=== PATIENT | male | born 1955 | race Caucasian/White ===

== ENCOUNTER → 2017-08-21 | Outpatient (CLI) | payer BC | LOC: OD 10:24 | PROVIDERS: ATTEND Physician Assistant | DX: E11.40 Type 2 diabetes mellitus with diabetic neuropathy, unspecified (principal) | CPT/HCPCS: 36415; 83036 ==

== ENCOUNTER → 2017-08-26 | Outpatient (CLI) | payer BC ==
[2017-08-26 11:58] LABS: ABSOLUTE LYMPHOCYTES (AUTO) 1.2 10^3/uL (0.5-4.7); ABSOLUTE MONOCYTES (AUTO) 0.5 10^3/uL (0.1-1.4); ABSOLUTE NEUT (AUTO) 5.5 10^3/uL (1.7-8.2); BASOPHILS % (AUTO) 0.5 % (0-2); EOSINOPHILS % (AUTO) 0.4 % (0-6); HEMATOCRIT 37.1 % (37.9-51.0); HEMOGLOBIN 12.5 g/dL (13.5-17.0); LYMPHOCYTES % (AUTO) 16.6 % (13-45); MEAN CORPUSCULAR HEMOGLOBIN 27.3 pg (27.0-33.4); MEAN CORPUSCULAR HGB CONC 33.8 g/dL (32.0-36.0); MEAN CORPUSCULAR VOLUME 81 fl (80-97); MONOCYTES % (AUTO) 6.9 % (3-13); PLATELET COUNT 458 10^3/uL (150-450); RED BLOOD COUNT 4.58 10^6/uL (4.35-5.55); RED CELL DISTRIBUTION WIDTH 13.6 % (11.5-14.0); SEGMENTED NEUTROPHILS % (AUTO) 75.6 % (42-78); TOTAL CELLS COUNTED % (AUTO) 100 %; WHITE BLOOD COUNT 7.3 10^3/uL (4.0-10.5)
[2017-08-26 12:40] LABS: ALANINE AMINOTRANSFERASE 20 U/L (21-72); ALBUMIN 3.7 g/dL (3.5-5.0); ALKALINE PHOSPHATASE 81 U/L (38-126); ANION GAP 13 (5-19); ASPARTATE AMINO TRANSFERASE 12 U/L (17-59); BILIRUBIN,DIRECT 0.1 mg/dL (0.0-0.4); BILIRUBIN,TOTAL 0.1 mg/dL (0.2-1.3); BLOOD UREA NITROGEN 15 mg/dL (7-20); CALCIUM 9.2 mg/dL (8.4-10.2); CARBON DIOXIDE 29 mmol/L (22-30); CHLORIDE 102 mmol/L (98-107); GLUCOSE 126 mg/dL (75-110); POTASSIUM 4.9 mmol/L (3.6-5.0); SODIUM 144.2 mmol/L (137-145)
== END ==
LOC: WC 10:37
PROVIDERS: ATTEND Nurse Practitioner
DX: L97.212 Non-pressure chronic ulcer of right calf with fat layer exposed (principal)
CPT/HCPCS: 36415; 80053; 83036; 85025

== ENCOUNTER → 2017-09-01 | Outpatient (CLI) | payer BC ==
--- NOTE | 2017-09-01 11:08 | XCELERA REPORT ---
[address] [address] Lower Extremity Arterial Evaluation Name: MAYCO PACKER Age: 62 yrs Gender: Male : 1955 Patient Status: Outpatient Patient Location: Study Date: 09/01/2017 09:05 AM Procedure: A color flow and duplex scan of the lower extremity arteries was performed bilaterally with velocity and waveform anaylsis. Ankle brachial indicies performed. 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 Biphasic Deep Femoral artery. 0-19% stenosis at the Deep Femoral artery. Ankle Brachial index is 1.26. Non compressible Dorsalis Pedis.. Left Side Arterial Evaluation Normal velocity and triphasic waveforms noted from the Common Femoral artery to the infrageniculate vessels. Biphasic Deep Femoral and Dorsalis Pedis arteries. 0-19% stenosis at the Deep Femoral and Dorsalis Pedis arteries. Ankle Brachial index was not obtainable, Non compressible. Interpretation Summary Mild hemodynamically significant lesions in the bilateral lower extremities, on duplex imaging, at rest. : AIRAM KNOTT > Elver Lawrence
--- NOTE | 2017-09-03 13:41 | XCELERA REPORT ---
[address] [address] Lower Extremity Venous Evaluation Name: MAYCO PACKER Age: 62 yrs Gender: Male : 1955 Patient Status: Outpatient Patient Location: Study Date: 09/01/2017 08:16 AM Procedure: A bilateral duplex scan of the lower extremity veins was performed. The evaluation included responses to compression and other maneuvers with patient in the supine and standing positions to assess venous insufficiency. Reason For Study: ULCER Ordering Physician: AIRAM KNOTT Performed By: Marcia Mohr Right Sided Venous Evaluation Deep venous system evaluatiion shows patent veins with no obstruction or significant reflux identified. Sapheno Femoral junction: no reflux. Femoral vein reflux: no reflux. Greater Saphenous vein, Proximal thigh: reflux: no reflux. Greater Saphenous vein, Distal thigh: reflux: no reflux. Greater Saphenous vein, Proximal below knee: reflux: no reflux. No significant Perforators identified. Left Sided Venous Evaluation Deep venous system evaluatiion shows patent veins with no obstruction or significant reflux identified. Sapheno Femoral junction: no reflux. Femoral vein reflux: no reflux. Greater Saphenous vein, Proximal thigh: reflux: no reflux. Greater Saphenous vein, Distal thigh: reflux: no reflux. Greater Saphenous vein, Proximal below knee: reflux: no reflux. No significant Perforators identified. Interpretation Summary No duplex evidence of DVT or obstruction in the bilateral lower extremities. No significant deep or superficial reflux found. : AIRAM KNOTT > Elver Lawrence
== END ==
LOC: SP 07:32
PROVIDERS: ATTEND Nurse Practitioner
DX: L97.212 Non-pressure chronic ulcer of right calf with fat layer exposed (principal)
CPT/HCPCS: 93925; 93970